=== PATIENT | male | born 1960 | race Caucasian/White ===

== ENCOUNTER 2023-09-30 12:01 | Observation (INO) | payer OTHER ==
[2023-09-30 13:55] LABS: HEMATOCRIT 42.4 % (35.4-49); HEMOGLOBIN 14.1 G/dL (11.7-16.9); MCH 30.3 pg (25.7-33.7); MCHC 33.2 g/dl (32.0-35.9); MEAN CELL VOLUME 91.4 fl (80-96); MEAN PLT VOLUME 8.1 fl (7.5-11.1); PLATELET COUNT 266.6 10^3/uL (134-434); RBC 4.64 10^6/uL (4.00-5.60); RDW 13.7 % (11.9-15.9); WHITE BLOOD COUNT 9.3 10^3/uL (4.0-10.8)
[2023-09-30 14:07] LABS: PLATELET ESTIMATE ADEQUATE
[2023-09-30 14:17] LABS: ALBUMIN 4.6 g/dl (3.4-5.0); BILIRUBIN,TOTAL 0.7 mg/dl (0.2-1); CALCIUM 9.2 mg/dl (8.5-10.1); CREATININE 0.6 mg/dl (0.6-1.3); POTASSIUM 3.4 mmol/L (3.5-5.1); TOT PROT 7.1 g/dl (6.4-8.2)
[2023-09-30 16:57] VITALS: BMI 27.1
[2023-09-30] MEDS: TAMSULOSIN HCL 0.4 MG CAP PO ONE (17:26)
[2023-09-30] MEDS: POTASSIUM CHLORIDE ORAL LIQUID 20 MEQ/15 ML PO ONE (17:27)
[2023-09-30] MEDS: ACETAMINOPHEN 325 MG TABLET (FP) PO PRN (18:21)
[2023-09-30] MEDS: ATORVASTATIN CA 10 MG TABLET (FP) PO SCH (21:24)
[2023-10-01 08:36] LABS: ALK PHOS 47 U/L (45-117); ANION GAP 6 mmol/L (4-13); BILIRUBIN,TOTAL 0.9 mg/dl (0.2-1); CALCIUM 8.8 mg/dl (8.5-10.1); CHLORIDE 101 mmol/L (98-107); CO2 25 mmol/L (21-32); CREATININE 0.8 mg/dl (0.6-1.3); GLUCOSE,RANDOM 122 mg/dl (74-106); POTASSIUM 3.5 mmol/L (3.5-5.1); SGOT/AST 20 U/L (15-37); SGPT/ALT 25 U/L (7-52); SODIUM 132 mmol/L (136-145); TOT PROT 6.2 g/dl (6.4-8.2)
[2023-10-01] MEDS: amLODIPine BESYLATE 5 MG TABLET (FP) PO SCH (09:48)
[2023-10-01] MEDS: TAMSULOSIN HCL 0.4 MG CAP PO SCH (09:49)
[2023-10-01 10:21] LABS: BASO % 0.1 % (0-2.0); EOS % 0.1 % (0-4.5); HEMATOCRIT 37.8 % (35.4-49); HEMOGLOBIN 13.2 GM/dL (11.7-16.9); LYMPH % 12.2 % (8-40); MCH 31.4 pg (25.7-33.7); MEAN CELL VOLUME 89.8 fl (80-96); MEAN PLT VOLUME 8.8 fl (7.5-11.1); MONO % 8.9 % (3.8-10.2); NEUT % 78.7 % (42.8-82.8); PLATELET COUNT 284 10^3/uL (134-434); RBC 4.22 M/mm3 (4.00-5.60); RDW 13.3 % (11.9-15.9); WHITE BLOOD COUNT 10.2 K/mm3 (4.0-10.0)
[2023-10-01 15:13] LABS: URIC ACID CRYSTALS FEW /hpf (NONE SEEN)
[2023-10-01 22:05] VITALS: RESP 18
[2023-10-02 08:09] LABS: HEMATOCRIT 41.1 % (35.4-49); HEMOGLOBIN 13.4 G/dL (11.7-16.9); MCH 30.1 pg (25.7-33.7); MCHC 32.6 g/dl (32.0-35.9); MEAN CELL VOLUME 92.4 fl (80-96); MEAN PLT VOLUME 8.7 fl (7.5-11.1); RBC 4.45 10^6/uL (4.00-5.60); WHITE BLOOD COUNT 8.5 10^3/uL (4.0-10.8)
[2023-10-02 09:20] LABS: ALBUMIN 4.1 g/dl (3.4-5.0); ALK PHOS 48 U/L (45-117); ANION GAP 8 mmol/L (4-13); BILIRUBIN,TOTAL 0.5 mg/dl (0.2-1); CHLORIDE 104 mmol/L (98-107); CO2 25 mmol/L (21-32); CREATININE 0.7 mg/dl (0.6-1.3); GLUCOSE,RANDOM 120 mg/dl (74-106); MAGNESIUM 2.3 mg/dL (1.8-2.4); PHOSPHOROUS 2.9 (2.5-4.9); POTASSIUM 3.8 mmol/L (3.5-5.1); SGOT/AST 17 U/L (15-37); SGPT/ALT 24 U/L (7-52); SODIUM 137 mmol/L (136-145); TOT PROT 6.5 g/dl (6.4-8.2)
[2023-10-02] MEDS: ENOXAPARIN NA (PORCINE) 40 MG/0.4 ML DISP.SYRIN SQ SCH (10:10)
[2023-10-02 14:21] VITALS: BP 128/68; PULSE 88; TEMP 97.9
== END 2023-10-02 16:09 | disposition home or self-care (01) ==
LOC: FER 12:01 → FM/S 15:46
PROVIDERS: ADMIT Internal Medicine
PROC: 0T9B70Z Drainage of Bladder with Drainage Device, Via Natural or Artificial Opening (ICD-10-PCS; principal; 2023-09-30)
PROC: 3E013GC Introduction of Other Therapeutic Substance into Subcutaneous Tissue, Percutaneous Approach (ICD-10-PCS; 2023-09-30)
DX: E87.1 Hypo-osmolality and hyponatremia (principal); R33.9 Retention of urine, unspecified; I10 Essential (primary) hypertension; E78.5 Hyperlipidemia, unspecified; R80.9 Proteinuria, unspecified; R31.9 Hematuria, unspecified; K59.00 Constipation, unspecified; N40.0 Benign prostatic hyperplasia without lower urinary tract symptoms
CPT/HCPCS: 36415; 51702; 76775-TC; 80053; 81003; 81015; 82436; 83735; 83930; 83935; 84100; 84133; 84156; 84300; 85025; 85027; 96372; 99285-25; G0378

== ENCOUNTER 2023-10-23 20:08 | Emergency (ER) | payer OTHER ==
[2023-10-23 20:25] VITALS: BP 152/98; PULSE 83; RESP 16; TEMP 98; BMI 25.7
== END 2023-10-23 21:56 | disposition home or self-care (01) ==
LOC: FER 20:08
PROC: 0T2BX0Z Change Drainage Device in Bladder, External Approach (ICD-10-PCS; principal; 2023-10-23)
DX: R33.9 Retention of urine, unspecified (principal); R10.30 Lower abdominal pain, unspecified
CPT/HCPCS: 81003; 81015; 87086; 99283-25

== ENCOUNTER 2024-02-03 15:19 | Observation (INO) | payer OTHER ==
[2024-02-03 16:21] LABS: HEMATOCRIT 40.9 % (35.4-49); HEMOGLOBIN 13.5 G/dL (11.7-16.9); MCH 29.8 pg (25.7-33.7); MEAN CELL VOLUME 90.4 fl (80-96); MEAN PLT VOLUME 7.5 fl (7.5-11.1); PLATELET COUNT 314.7 10^3/uL (134-434); RBC 4.52 10^6/uL (4.00-5.60); RDW 14.2 % (11.9-15.9); WHITE BLOOD COUNT 5.2 10^3/uL (4.0-10.8)
[2024-02-03 16:44] LABS: PLATELET ESTIMATE SLT INCREASE
[2024-02-03 16:54] LABS: ANION GAP 7 mmol/L (4-13); CALCIUM 9.3 mg/dl (8.5-10.1); CHLORIDE 103 mmol/L (98-107); CO2 27 mmol/L (21-32); CREATININE 0.7 mg/dl (0.6-1.3); GLUCOSE,RANDOM 143 mg/dl (74-106); POTASSIUM 3.6 mmol/L (3.5-5.1); SODIUM 137 mmol/L (136-145)
[2024-02-04 01:24] VITALS: BMI 26.4
[2024-02-04] MEDS: ATORVASTATIN CA 10 MG TABLET (FP) PO SCH (02:22)
[2024-02-04] MEDS: TAMSULOSIN HCL 0.4 MG CAP PO ONE (02:22)
[2024-02-04 06:40] LABS: POTASSIUM 3.7 mmol/L (3.5-5.1)
[2024-02-04 06:41] LABS: MAGNESIUM 2.3 mg/dL (1.8-2.4)
[2024-02-04 06:42] LABS: CALCIUM 8.8 mg/dL (8.5-10.1)
[2024-02-04 06:43] LABS: ALBUMIN 3.5 g/dl (3.4-5.0)
[2024-02-04 06:46] LABS: CREATININE 0.8 mg/dL (0.55-1.3)
[2024-02-04 06:47] LABS: BILIRUBIN,TOTAL 0.3 mg/dL (0.2-1); TOT PROT 6.8 g/dl (6.4-8.2)
[2024-02-04 07:28] LABS: BASO % 0.9 % (0-2.0); EOS % 2.9 % (0-4.5); HEMATOCRIT 39.2 % (35.4-49); HEMOGLOBIN 13.5 GM/dL (11.7-16.9); LYMPH % 31.7 % (8-40); MCH 30.5 pg (25.7-33.7); MCHC 34.4 g/dl (32.0-35.9); MEAN CELL VOLUME 88.6 fl (80-96); MEAN PLT VOLUME 7.8 fl (7.5-11.1); MONO % 9.5 % (3.8-10.2); PLATELET COUNT 351 10^3/uL (134-434); RBC 4.43 M/mm3 (4.00-5.60); RDW 13.7 % (11.9-15.9); WHITE BLOOD COUNT 5.8 K/mm3 (4.0-10.0)
[2024-02-04] MEDS ORDERED: TAMSULOSIN HCL 0.4 MG CAP PO SCH (08:30)
[2024-02-04] MEDS: ASPIRIN COATED 81 MG TABLET.EC PO SCH (09:47)
[2024-02-04] MEDS: amLODIPine BESYLATE 5 MG TABLET (FP) PO SCH (09:47)
[2024-02-04] MEDS ORDERED: CALMINE 3% AND PRAMOXINE 1% 118 ML BOTTLE TP PRN (17:25)
[2024-02-04] MEDS: CALAMINE 8% TOPICAL LOTION 177 ML BOTTLE TP PRN (18:20)
[2024-02-04] MEDS: TAMSULOSIN HCL 0.4 MG CAP PO SCH (22:15)
[2024-02-05 06:53] LABS: EOS % 4.3 % (0-4.5); HEMATOCRIT 39.6 % (35.4-49); HEMOGLOBIN 13.2 GM/dL (11.7-16.9); LYMPH % 32.1 % (8-40); MCHC 33.2 g/dl (32.0-35.9); MEAN CELL VOLUME 90.1 fl (80-96); MEAN PLT VOLUME 7.7 fl (7.5-11.1); MONO % 9.9 % (3.8-10.2); NEUT % 52.7 % (42.8-82.8); PLATELET COUNT 351 10^3/uL (134-434); RBC 4.39 M/mm3 (4.00-5.60); RDW 14.2 % (11.9-15.9); WHITE BLOOD COUNT 5.7 K/mm3 (4.0-10.0)
[2024-02-05 07:18] LABS: POTASSIUM 3.9 mmol/L (3.5-5.1)
[2024-02-05 07:22] LABS: CALCIUM 8.9 mg/dL (8.5-10.1)
[2024-02-05 07:23] LABS: ALBUMIN 3.5 g/dl (3.4-5.0); BLOOD UREA NITROGEN 12.1 mg/dL (7-18)
[2024-02-05 07:26] LABS: CREATININE 0.7 mg/dL (0.55-1.3)
[2024-02-05 07:27] LABS: BILIRUBIN,TOTAL 0.5 mg/dL (0.2-1); TOT PROT 6.5 g/dl (6.4-8.2)
[2024-02-05] MEDS ORDERED: REGADENOSON 0.4 MG/5 ML PRE-FILLED SYRINGE IVPUSH ONE (09:22)
[2024-02-05] MEDS: REGADENOSON 0.4 MG/5 ML PRE-FILLED SYRINGE IVPUSH ONE (09:50)
[2024-02-08 06:30] VITALS: RESP 20
[2024-02-08 11:24] VITALS: BP 122/90; PULSE 89; TEMP 97.9
== END 2024-02-08 11:37 | disposition short-term general hospital (02) ==
LOC: FER 15:19 → UNDOADMOB 23:25 → J4W 23:25 → INTOOBSV 23:25 → J4W 02-04 09:28
PROVIDERS: ADMIT Internal Medicine; ATTEND Internal Medicine
PROC: 3E033GC Introduction of Other Therapeutic Substance into Peripheral Vein, Percutaneous Approach (ICD-10-PCS; principal; 2024-02-04)
DX: R07.9 Chest pain, unspecified (principal); R79.89 Other specified abnormal findings of blood chemistry; I10 Essential (primary) hypertension; E78.5 Hyperlipidemia, unspecified; N40.0 Benign prostatic hyperplasia without lower urinary tract symptoms; Z29.89 Encounter for other specified prophylactic measures
CPT/HCPCS: 36415; 71046-TC-FY; 78452-TC; 80048; 80053; 80061; 82550; 83036; 83735; 84443; 84484; 85025; 85027; 93005; 93010; 93017; 93306-TC; 96374; 99285-25; A9502; G0378; J2785

== ENCOUNTER 2024-07-25 15:47 | Emergency (ER) | payer OTHER ==
[2024-07-25] MEDS ORDERED: LIDOCAINE HCL 2% JELLY 10 ML CARTRIDGE ONE (15:58)
[2024-07-25] MEDS: LIDOCAINE HCL 2% JELLY 10 ML CARTRIDGE UR ONE (16:15)
[2024-07-25 16:31] VITALS: BP 150/99; PULSE 82; RESP 19; TEMP 98.1; BMI 23.4
[2024-07-25 16:55] LABS: HEMOGLOBIN 12.8 G/dL (11.7-16.9); MCH 31.4 pg (25.7-33.7); MCHC 34.6 g/dl (32.0-35.9); MEAN CELL VOLUME 90.8 fl (80-96); PLATELET COUNT 295.3 10^3/uL (134-434); RBC 4.07 10^6/uL (4.00-5.60); RDW 14.7 % (11.9-15.9); WHITE BLOOD COUNT 7.2 10^3/uL (4.0-10.8)
[2024-07-25 17:22] LABS: ALBUMIN 4.3 g/dl (3.4-5.0); BILIRUBIN,TOTAL 0.5 mg/dl (0.2-1); CALCIUM 8.7 mg/dl (8.5-10.1); CREATININE 0.6 mg/dl (0.6-1.3); POTASSIUM 3.7 mmol/L (3.5-5.1); TOT PROT 6.9 g/dl (6.4-8.2)
[2024-07-25] MEDS ORDERED: CEPHALEXIN MONOHYDRATE 500 MG CAPSULE (UD) ONE (17:38)
[2024-07-25] MEDS: CEPHALEXIN MONOHYDRATE 500 MG CAPSULE (UD) PO ONE (17:39)
== END 2024-07-25 17:55 | disposition home or self-care (01) ==
LOC: FER 15:47
PROC: 0T2BX0Z Change Drainage Device in Bladder, External Approach (ICD-10-PCS; principal; 2024-07-25)
DX: T83.098A Other mechanical complication of other urinary catheter, initial encounter (principal); R33.9 Retention of urine, unspecified; N39.0 Urinary tract infection, site not specified; R10.30 Lower abdominal pain, unspecified
CPT/HCPCS: 36415; 51702; 80053; 81003; 81015; 85027; 87086; 99283-25